=== PATIENT | female | born 1985 | race Caucasian/White ===

== ENCOUNTER → 2017-07-19 | Outpatient (CLI) | payer BC, OTHER ==
[2017-07-23 14:04] LABS: Mis test requested (Blood) Full Integraded Pt 2
== END | disposition home or self-care (01) ==
LOC: LABWHC1 12:49
PROVIDERS: ATTEND Obstetrics & Gynecology Maternal & Fetal Medicine
DX: Z34.81 Encounter for supervision of other normal pregnancy, first trimester (principal); Z3A.00 Weeks of gestation of pregnancy not specified
CPT/HCPCS: 36415; 82105; 82677; 84702; 86336

== ENCOUNTER 2017-11-25 12:49 | Outpatient (CLI) | payer BC, OTHER ==
[2017-11-25 14:24] VITALS: BP 123/78; PULSE 85; RESP 14; TEMP 96.9
--- NOTE | 2017-12-25 17:38 | P.MSEPDOC ---
Presenting Problems - Arrival Data Date of Arrival on Unit: 11/25/17 Time of Arrival on Unit: 12:49 Mode of Transport: Wheelchair - Complaint OB-Reason for Admission/Chief Complaint: Visual Disturbances, Dizziness, Syncope /Fainting Spell Comment: dizzy, seeing spots, almost passed out, short of breath Medical History - Information : 5 Para: 3 Term: 2 : 1 Abortions: Spontaneous or Elective: 1 Number of Living Children: 2 - Gestational Age Gestational Age by KATIA (wks/days): 34 Weeks and 3 Days - History Complications: Prior Comment: MTHFR, thrombophilia, Hx DVT Review of Systems - Review of Systems Constitutional: No problems Breast: No problems ENT: No problems Cardiovascular: No problems Respiratory: TARA Gastrointestinal: No problems Genitourinary: No problems Musculoskeletal: No problems Neurological: Dizziness Skin: No problems Comment: pt states short of breath, lungsounds clear to auscultation Vital Signs - Temperature Temperature: 96.9 F Temperature Source: Temporal Artery Scan - Pulse Right Pulse Rate: 85 Pulse Assessment Method: Automatic Cuff - Respirations Respiratory Rate: 14 Oxygen Delivery Method: Room Air O2 Sat by Pulse Oximetry: 97 - Blood Pressure Right Arm Blood Pressure: 123/78 Blood Pressure Mean: 93 Blood Pressure Source: Automatic Cuff Medical Screen Scoring (Pre) - Cervical Exam Dilation: Exam Deferred - Uterine Contractions Frequency: N/A Duration: N/A Intensity: N/A - Maternal Vital Signs Maternal Temperature: N/A Maternal Blood Pressure: N/A Signs of Preeclampsia: N/A Maternal Respirations: N/A - Pain Assessment Pain Scale Used: Numeric (1 - 10) Pain Intensity: 0 - Maternal Trauma Maternal Trauma: N/A - Assessment Baseline FHR: 125 Heart Rate - NICHD Category: Category I (Normal) = 0 NST: Reactive Position: N/A Station: N/A - Total Score Total Score (Pre): 0 - Level of Risk Level of Risk: Low (0-5) Physician Notification (Pre) - Physician Notified Physician Notified Date: 11/25/17 Physician Notified Time: 13:18 Spoke With: Oniel Joshi Order Received: Yes (Take to EC for evaluation) Disposition - Disposition OB Disposition: Triage, Transfer to other dept./facility Transferred to:: Emergency Department Discharge Date: 11/25/17 Discharge Time: 13:31 I agree with the RN Medical Screening Exam: Yes Risk & Benefit of care provided described in d/c instruction: Yes Diagnosis: RELATED CONDITIONS, UNSPECIFIED, THIRD TRIMESTER (near syncope)
== END 2017-11-25 13:31 | disposition home or self-care (01) ==
LOC: FBPOP 12:49
PROVIDERS: ATTEND Obstetrics & Gynecology
DX: O26.93 Pregnancy related conditions, unspecified, third trimester (principal); H53.8 Other visual disturbances; R42 Dizziness and giddiness; R55 Syncope and collapse; Z3A.34 34 weeks gestation of pregnancy
CPT/HCPCS: 59025; 99213

== ENCOUNTER 2017-11-25 13:39 | Emergency (ER) | payer BC, OTHER ==
[2017-11-25 13:57] VITALS: RESP 18; TEMP 98
--- NOTE | 2017-11-25 14:59 | ED ---
Dizziness HPI - General Chief Complaint: Dizziness Stated Complaint: dizziness/near syncope Time Seen by Provider: 11/25/17 14:59 Source: patient, family () Mode of arrival: wheelchair Limitations: no limitations - History of Present Illness Initial Comments: Patient presents with lightheadedness, presyncope. Patient is 34 weeks . Patient seen in labor and delivery prior to arrival to the emergency room, cleared by OB. Patient states she woke up at 11 AM today, states she felt very lightheaded when standing up, feels lightheaded like she cannot pass out when she walks. Complains of mild shortness of breath. States she feels fatigued, entire body feels heavy. 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 Patient currently on aspirin Lovenox. Patient denies any abdominal pain, vaginal bleeding, bleeding anywhere, blood in her stools, dark stools. Patient states everything was normal yesterday, denies any recent illness or symptoms prior to onset at 11 AM today. Patient states heart rate was right around 100 at home today. Denies fevers, chills, nausea, vomiting, cough, rhinorrhea, nasal congestion, headache, numbness, weakness. MD Complaint: lightheadedness, near syncope - Related Data Home Medications Medication Instructions Recorded Confirmed Cetirizine HCl [Zyrtec] 10 mg PO HS 06/09/15 11/25/17 Aspirin [Adult Low Dose Aspirin EC] 81 mg PO HS 11/25/17 11/25/17 Enoxaparin [Lovenox] 40 mg SQ HS 11/25/17 11/25/17 Pnv No.95/Ferrous Fum/Folic AC 1 tab PO HS 11/25/17 11/25/17 [ Multivitamin Tablet] Previous Rx's Medication Instructions Recorded Cephalexin [Keflex] 500 mg PO Q12HR 5 Days #10 cap 11/25/17 Allergies Allergy/AdvReac Type Severity Reaction Status Date / Time pseudoephedrine HCl Allergy Rapid Verified 11/25/17 15:46 [From Sudafed] Heart Rate Sulfa (Sulfonamide Allergy Anaphylaxis Verified 11/25/17 15:46 Antibiotics) Review of Systems ROS Statement: Those systems with pertinent positive or pertinent negative responses have been documented in the HPI. ROS Other: All systems not noted in ROS Statement are negative. Constitutional: Denies: fever, chills, weakness Eyes: Denies: vision change ENT: Denies: ear pain, throat pain, congestion Respiratory: Reports: dyspnea. Denies: cough, wheezes, hemoptysis, stridor Cardiovascular: Reports: dyspnea on exertion. Denies: chest pain, palpitations , syncope Endocrine: Reports: fatigue Gastrointestinal: Denies: abdominal pain, nausea, vomiting, hematemesis, melena , hematochezia Genitourinary: Denies: urgency, hematuria Musculoskeletal: Denies: back pain Skin: Denies: rash, change in color Neurological: Denies: headache, weakness, numbness, confusion Past Medical History Past Medical History: Deep Vein Thrombosis (DVT) History of Any Multi-Drug Resistant Organisms: None Reported Past Surgical History: Section Additional Past Surgical History / Comment(s): ENDOMETRIAL MOLE REMOVED, VAGINAL REPAIR, left ankle fracture Past Psychological History: No Psychological Hx Reported Smoking Status: Never smoker Past Alcohol Use History: None Reported Past Drug Use History: None Reported General Exam - General Exam Comments Initial Comments: Sitting up in bed. No acute distress. Calm, pleasant, smiling. Well- appearing. Limitations: no limitations General appearance: alert, in no apparent distress Head exam: Present: atraumatic, normocephalic Eye exam: Present: normal appearance, PERRL, EOMI ENT exam: Present: normal exam, mucous membranes moist Neck exam: Present: normal inspection Respiratory exam: Present: normal lung sounds bilaterally. Absent: respiratory distress, wheezes, rales, rhonchi, stridor, accessory muscle use, decreased breath sounds, prolonged expiratory Cardiovascular Exam: Present: regular rate, normal rhythm GI/Abdominal exam: Present: soft, other (Gravid). Absent: tenderness, guarding , rebound Extremities exam: Present: normal inspection. Absent: pedal edema, calf tenderness Neurological exam: Present: alert, oriented X3, other (GCS 15) Psychiatric exam: Present: normal affect, normal mood Skin exam: Present: warm, dry, intact, normal color. Absent: rash Course Vital Signs 11/25/17 11/25/17 11/25/17 13:54 15:22 17:28 Temperature 98.0 F Pulse Rate 98 101 H 98 Respiratory 18 18 Rate Blood Pressure 126/80 125/79 127/84 O2 Sat by Pulse 98 95 99 Oximetry Medical Decision Making - Medical Decision Making Patient has a history of DVTs. Patient complains of shortness of breath, presyncope. Risk-benefit discussion of CT to rule out pulmonary embolism with patient and , state that is her main concern is to "rule out PE", they agree with CTA chest. EKG: Normal sinus rhythm, heart rate 88, no ST or T-wave changes appreciated. No S1 Q3 T3 appreciated. CT PE negative. Patient required 2 L IV fluids before producing urine sample. Possible dehydration. UA likely contamination, we'll send urine culture. Given we will treat this course of antibiotics. Patient & updated with poor results. She'll comfortable going discharge home. Other than fatigue no symptoms consistent with influenza. Patient instructed to monitor for headache, URI symptoms, cough, nausea, vomiting, diarrhea. Patient agrees to follow primary care physician one to 2 days, states she has "appointments with All my doctors this week". Return to ER for new or worsening symptoms. Patient & understand and agree. - Lab Data Result diagrams: 11/25/17 15:21 11/25/17 15:21 Lab Results 11/25/17 11/25/17 11/25/17 Range/Units 15:21 15:21 15:21 WBC 16.8 H (3.8-10.6) k/uL RBC 4.68 (3.80-5.40) m/uL Hgb 14.0 (11.4-16.0) gm/dL Hct 41.5 (34.0-46.0) % MCV 88.8 (80.0-100.0) fL MCH 29.9 (25.0-35.0) pg MCHC 33.6 (31.0-37.0) g/dL RDW 15.8 H (11.5-15.5) % Plt Count 315 (150-450) k/uL Neutrophils % 86 % Lymphocytes % 7 % Monocytes % 5 % Eosinophils % 1 % Basophils % 0 % Neutrophils # 14.4 H (1.3-7.7) k/uL Lymphocytes # 1.2 (1.0-4.8) k/uL Monocytes # 0.8 (0-1.0) k/uL Eosinophils # 0.2 (0-0.7) k/uL Basophils # 0.0 (0-0.2) k/uL PT (9.0-12.0) sec INR (<1.2) APTT (22.0-30.0) sec Sodium 138 (137-145) mmol/L Potassium 5.2 H (3.5-5.1) mmol/L Chloride 109 H (98-107) mmol/L Carbon Dioxide 18 L (22-30) mmol/L Anion Gap 11 mmol/L BUN 12 (7-17) mg/dL Creatinine 0.60 (0.52-1.04) mg/dL Est GFR (MDRD) Af Amer >60 (>60 ml/min/1.73 sqM) Est GFR (MDRD) Non-Af >60 (>60 ml/min/1.73 sqM) Glucose 87 (74-99) mg/dL Calcium 9.3 (8.4-10.2) mg/dL Magnesium 1.7 (1.6-2.3) mg/dL Total Creatine Kinase 27 L (30-135) U/L CK-MB (CK-2) 0.5 (0.0-2.4) ng/mL CK-MB (CK-2) Rel Index 1.9 Troponin I <0.012 (0.000-0.034) ng/mL Urine Color Urine Appearance (Clear) Urine pH (5.0-8.0) Ur Specific [place] (1.001-1.035) Urine Protein (Negative) Urine Glucose (UA) (Negative) Urine Blood (Negative) Urine Nitrite (Negative) Urine Bilirubin (Negative) Urine Urobilinogen (<2.0) mg/dL Ur Leukocyte Esterase (Negative) Urine RBC (0-5) /hpf Urine WBC (0-5) /hpf Ur Squamous Epith Cells (0-4) /hpf Urine Bacteria (None) /hpf Urine Mucus (None) /hpf 11/25/17 11/25/17 Range/Units 15:21 17:30 WBC (3.8-10.6) k/uL RBC (3.80-5.40) m/uL Hgb (11.4-16.0) gm/dL Hct (34.0-46.0) % MCV (80.0-100.0) fL MCH (25.0-35.0) pg MCHC (31.0-37.0) g/dL RDW (11.5-15.5) % Plt Count (150-450) k/uL Neutrophils % % Lymphocytes % % Monocytes % % Eosinophils % % Basophils % % Neutrophils # (1.3-7.7) k/uL Lymphocytes # (1.0-4.8) k/uL Monocytes # (0-1.0) k/uL Eosinophils # (0-0.7) k/uL Basophils # (0-0.2) k/uL PT 9.7 (9.0-12.0) sec INR 1.0 (<1.2) APTT 22.8 (22.0-30.0) sec Sodium (137-145) mmol/L Potassium (3.5-5.1) mmol/L Chloride (98-107) mmol/L Carbon Dioxide (22-30) mmol/L Anion Gap mmol/L BUN (7-17) mg/dL Creatinine (0.52-1.04) mg/dL Est GFR (MDRD) Af Amer (>60 ml/min/1.73 sqM) Est GFR (MDRD) Non-Af (>60 ml/min/1.73 sqM) Glucose (74-99) mg/dL Calcium (8.4-10.2) mg/dL Magnesium (1.6-2.3) mg/dL Total Creatine Kinase (30-135) U/L CK-MB (CK-2) (0.0-2.4) ng/mL CK-MB (CK-2) Rel Index Troponin I (0.000-0.034) ng/mL Urine Color Yellow Urine Appearance Cloudy H (Clear) Urine pH 6.5 (5.0-8.0) Ur Specific [place] 1.040 H (1.001-1.035) Urine Protein 1+ H (Negative) Urine Glucose (UA) Negative (Negative) Urine Blood Negative (Negative) Urine Nitrite Negative (Negative) Urine Bilirubin Negative (Negative) Urine Urobilinogen <2.0 (<2.0) mg/dL Ur Leukocyte Esterase Large H (Negative) Urine RBC 15 H (0-5) /hpf Urine WBC 13 H (0-5) /hpf Ur Squamous Epith Cells 20 H (0-4) /hpf Urine Bacteria Many H (None) /hpf Urine Mucus Occasional H (None) /hpf Disposition Clinical Impression: Lightheaded, Fatigue Disposition: HOME SELF-CARE Condition: Good Instructions: Lightheadedness (ED) Additional Instructions: Follow-up primary care physician one to 2 days. Return to ER for new or worsening symptoms. Prescriptions: Cephalexin [Keflex] 500 mg PO Q12HR 5 Days #10 cap Referrals: Yunior Wynn MD [Primary Care Provider] - 1-2 days
[2017-11-25] MEDS ORDERED: SODIUM CHLORIDE 0.9% 1,000 ML IV STA ×2 (15:08→16:40)
[2017-11-25] MEDS ORDERED: RX INFO: IV CONTRAST WAS GIVEN 1 EACH MISC MISCELLANE PRN (15:09)
[2017-11-25 15:37] LABS: Basophils % (A) 0 %; Eosinophils # (A) 0.2 k/uL (0-0.7); Eosinophils % (A) 1 %; HCT 41.5 % (34.0-46.0); Lymphocytes # (A) 1.2 k/uL (1.0-4.8); Lymphocytes % (A) 7 %; MCH 29.9 pg (25.0-35.0); MCHC 33.6 g/dL (31.0-37.0); MCV 88.8 fL (80.0-100.0); Mean Platelet Volume 6.9; Monocytes # (A) 0.8 k/uL (0-1.0); Monocytes % (A) 5 %; Neutrophils # (A) 14.4 k/uL (1.3-7.7); Neutrophils % (A) 86 %; Platelet Count 315 k/uL (150-450); RBC 4.68 m/uL (3.80-5.40); RDW 15.8 % (11.5-15.5); WBC 16.8 k/uL (3.8-10.6)
[2017-11-25 15:47] LABS: Anion Gap 11 mmol/L; Blood Urea Nitrogen 12 mg/dL (7-17); Calcium 9.3 mg/dL (8.4-10.2); Carbon Dioxide 18 mmol/L (22-30); Chloride 109 mmol/L (98-107); Glucose 87 mg/dL (74-99); Magnesium 1.7 mg/dL (1.6-2.3); Potassium 5.2 mmol/L (3.5-5.1); Sodium 138 mmol/L (137-145)
[2017-11-25 15:55] LABS: Creatine Kinase 27 U/L (30-135)
[2017-11-25 16:08] LABS: Creatine Kinase MB 0.5 ng/mL (0.0-2.4); Troponin I <0.012 ng/mL (0.000-0.034)
[2017-11-25 16:10] LABS: Partial Thromboplastin Time 22.8 sec (22.0-30.0); Prothrombin Time 9.7 sec (9.0-12.0)
--- NOTE | 2017-11-25 16:51 | CT ---
EXAMINATION TYPE: CT angio chest DATE OF EXAM: 11/25/2017 4:36 PM COMPARISON: 09/26/2014 HISTORY: Dizziness with near syncope. CT DLP: 387.9 mGycm Automated exposure control for dose reduction was used. CONTRAST: CTA scan of the thorax is performed with IV Contrast, patient injected with 64 mL of Omnipaque 350, p ulmonary embolism protocol. There are 3-D post processed images.. FINDINGS: The lungs are clear of consolidation. There is no pleural effusion. There is no evidence of a pulmona ry mass. There is a small hiatal hernia. Heart size is normal. There is no pericardial effusion. I se e no filling defects in the pulmonary arteries. The bony thorax appears intact. There is no mediastin al adenopathy. There are no hilar masses. Thoracic aorta appears normal. IMPRESSION: NO EVIDENCE OF PULMONARY EMBOLISM. Small hiatal hernia that is new compared to old exam.
[2017-11-25 17:29] VITALS: BP 127/84; PULSE 98
[2017-11-25 17:37] LABS: Appearance,Urine Cloudy (Clear); Bacteria,Urine Many /hpf; Bilirubin,Urine Negative (Negative); Blood,Urine Negative (Negative); Color,Urine Yellow; Glucose,Urine (UA) Negative (Negative); Ketones,Urine 2+ (Negative); Leukocyte Esterase,Urine Large (Negative); Mucus,Urine Occasional /hpf; Nitrite,Urine Negative (Negative); PH, Urine 6.5 (5.0-8.0); Protein,Urine 1+ (Negative); RBC,Urine 15 /hpf (0-5); Squamous Epithelial Cell,Urine 20 /hpf (0-4); Urobilinogen,Urine <2.0 mg/dL (<2.0); WBC,Urine 13 /hpf (0-5)
== END 2017-11-25 18:29 | disposition home or self-care (01) ==
LOC: EC 13:39
DX: O99.89 Other specified diseases and conditions complicating pregnancy, childbirth and the puerperium (principal); R42 Dizziness and giddiness; R53.83 Other fatigue; R06.02 Shortness of breath; R55 Syncope and collapse; Z3A.34 34 weeks gestation of pregnancy; Z86.718 Personal history of other venous thrombosis and embolism; Z79.82 Long term (current) use of aspirin; Z79.01 Long term (current) use of anticoagulants; Z79.899 Other long term (current) drug therapy; Z88.2 Allergy status to sulfonamides; Z88.8 Allergy status to other drugs, medicaments and biological substances
CPT/HCPCS: 36415; 93005; 80048; 82550; 82553; 83735; 84484; 85025; 85610; 85730; 81001; 87086; 71275; 99284; 96360; 96361; Q9967; 59025; 99213

== ENCOUNTER 2018-12-09 06:39 | Day surgery (SDC) | payer BC, OTHER ==
[2018-12-04 10:37] VITALS: BMI 41.1
--- NOTE | 2018-12-05 13:30 | P.HPOB ---
History of Present Illness H&P Date: 12/05/18 Chief Complaint: Menorrhagia Basia is a 33-year-old female with heavy vaginal bleeding. She also is noted to have an ultrasound showing a thickened endometrium at 2 cm. She is scheduled for D&C with hysteroscopy. Risks/benefits/alternatives to this procedure were discussed with the patient in detail and all questions were answered for her prior to proceeding to the operating room. On physical exam vital signs are stable afebrile. Heart regular, lungs clear, extremities without pain. Abdomen soft nontender. Positive bowel sounds are noted. Pelvic exam is otherwise unremarkable. Assessment menorrhagia. Plan D& C with hysteroscopy. Past Medical History Past Medical History: Deep Vein Thrombosis (DVT) Additional Past Medical History / Comment(s): DVT LT LEG X 2. THICKENED ENDOMETRIAL LINING History of Any Multi-Drug Resistant Organisms: None Reported Past Surgical History: Appendectomy, Section Additional Past Surgical History / Comment(s): ENDOMETRIAL MOLE REMOVED, VAGINAL REPAIR, C-SECT X 3, LAP. DIAG. EXAM Past Anesthesia/Blood Transfusion Reactions: No Reported Reaction Smoking Status: Never smoker - Past Family History Mother Family Medical History: No Reported History Medications and Allergies Home Medications Medication Instructions Recorded Confirmed Type Cetirizine HCl [Zyrtec] 10 mg PO HS 06/09/15 12/04/18 History Aspirin [Adult Low Dose Aspirin EC] 81 mg PO HS 11/25/17 12/04/18 History Acetaminophen [Tylenol Extra 500 - 1,000 mg PO DAILY PRN 12/04/18 12/04/18 History Strength] Cholecalciferol [Vitamin D3] 5,000 unit PO DAILY 12/04/18 12/04/18 History Post Vitamin 1 each PO HS 12/04/18 History Allergies Allergy/AdvReac Type Severity Reaction Status Date / Time pseudoephedrine HCl Allergy Rapid Verified 12/04/18 10:32 [From Sudafed] Heart Rate Sulfa (Sulfonamide Allergy Anaphylaxis Verified 12/04/18 10:32 Antibiotics) Exam Osteopathic Statement: *. No significant issues noted on an osteopathic structural exam other than those noted in the History and Physical/Consult.
[~2018-12-09 06:39] MED LIST: DEXAMETHASONE SOD PHOSPHATE 10 MG/ML 1 ML VIAL IV ONE; HYDROmorphone 0.5 MG/0.5 ML SYRINGE IVP PRN; LACTATED RINGERS 1,000 ML IV SCH; MIDAZOLAM (PF) 2 MG/2 ML VIAL IV PRN; ONDANSETRON 4 MG/2 ML VIAL IVP ONE; Pre Op ABX Message 1 EACH MISC MISCELLANE ONE; SCOPOLAMINE 1.5MG/72HR PATCH TRANSDERM ONE
[2018-12-09] MEDS ORDERED: LIDOCAINE 1% 20 ML VIAL (10MG/ML) FOR IV START INTRADERMA ONE (07:03)
[2018-12-09] MEDS ORDERED: LACTATED RINGERS 1,000 ML IV ONE (07:03)
[2018-12-09] MEDS ORDERED: SCOPOLAMINE 1.5MG/72HR PATCH TRANSDERM ONE (07:05)
[2018-12-09] MEDS ORDERED: LIDOCAINE 1% INJ 10MG/ML (20 ML MDV) ONE (07:32)
[2018-12-09] MEDS ORDERED: fentaNYL (PF) 50 MCG/ML 2 ML AMP ONE (07:32)
[2018-12-09] MEDS ORDERED: PROPOFOL 10 MG/ML 20 ML VIAL IV ONE (07:32)
[2018-12-09] MEDS ORDERED: SUCCINYLCHOLINE CHLORIDE 100 MG/5 ML SYR IV ONE (07:32)
--- NOTE | 2018-12-09 08:03 | P.OP ---
Date of Procedure: 12/09/18 Preoperative Diagnosis: Menorrhagia Postoperative Diagnosis: Same Procedure(s) Performed: D&C with hysteroscopy Anesthesia: EZEQUIEL Surgeon: Cruz Engle Estimated Blood Loss (ml): 3 Pathology: other (Uterine curettings) Condition: stable Disposition: same day Operative Findings: Pathology pending Description of Procedure: Patient was taken to the operating suite where general anesthetic was found be adequate. She was prepped and draped in the normal sterile fashion and placed in dorsal lithotomy position. Initially a speculum was inserted into the vagina and the anterior lip of the cervix identified and grasped with an Allis clamp. Uterus was then sounded to 9-1/2 cm and cervix was dilated. Once accomplished camera was inserted. No gross pathology was noted. Camera was then removed and sharp curettings of endometrium were obtained. All tissues collected placed on Telfa, and sent to pathology for evaluation. All incidents were then removed. Sponge, lap, needle counts were all correct 2. Patient was then taken to the recovery room in stable and satisfactory condition. Plan - Discharge Summary Discharge Rx Participant: Yes New Discharge Prescriptions: New Ibuprofen [Motrin] 600 mg PO Q6HR PRN #30 tab PRN Reason: Pain No Action Cetirizine HCl [Zyrtec] 10 mg PO HS Aspirin [Adult Low Dose Aspirin EC] 81 mg PO HS Cholecalciferol [Vitamin D3] 5,000 unit PO DAILY Post Vitamin 1 each PO HS Acetaminophen [Tylenol Extra Strength] 500 - 1,000 mg PO DAILY PRN PRN Reason: Pain Discharge Medication List Cetirizine HCl [Zyrtec] 10 mg PO HS 06/09/15 [History] Aspirin [Adult Low Dose Aspirin EC] 81 mg PO HS 11/25/17 [History] Acetaminophen [Tylenol Extra Strength] 500 - 1,000 mg PO DAILY PRN 12/04/18 [ History] Cholecalciferol [Vitamin D3] 5,000 unit PO DAILY 12/04/18 [History] Post Vitamin 1 each PO HS 12/04/18 [History] Ibuprofen [Motrin] 600 mg PO Q6HR PRN #30 tab 12/09/18 [Rx] Follow up Appointment(s)/Referral(s): Cruz Engle DO [Doctor of Osteopathic Medicine] - 10 Days Patient Instructions/Handouts: *[facility] - (Anesthesia) Discharge Instructions Outpatient Surgery, *[facility] - Scopalamine Patch Instructions Activity/Diet/Wound Care/Special Instructions: No heavy lifting, limit stairs and driving, and pelvic rest today. If any high temperatures, heavy bleeding, or severe pain call my office Discharge Disposition: HOME SELF-CARE
[2018-12-09 08:10] VITALS: TEMP 97.5
[2018-12-09] MEDS ORDERED: KETOROLAC 30 MG/ML 1 ML VIAL IVP ONE (08:20)
[2018-12-09 09:11] VITALS: RESP 18
[2018-12-09 09:43] VITALS: BP 120/82
[2018-12-09 09:49] VITALS: PULSE 76
== END 2018-12-09 10:13 | disposition home or self-care (01) ==
LOC: OR 06:39
PROVIDERS: ATTEND Obstetrics & Gynecology
DX: N92.0 Excessive and frequent menstruation with regular cycle (principal); R93.89 Abnormal findings on diagnostic imaging of other specified body structures; J45.909 Unspecified asthma, uncomplicated; K21.9 Gastro-esophageal reflux disease without esophagitis; Z79.82 Long term (current) use of aspirin; Z79.899 Other long term (current) drug therapy; Z88.2 Allergy status to sulfonamides; Z88.8 Allergy status to other drugs, medicaments and biological substances; Z86.718 Personal history of other venous thrombosis and embolism
CPT/HCPCS: 81025; 88305; 58558; J1100; J2405; J2001; J3010; J1885; J0330; J2704

== ENCOUNTER → 2019-03-23 | Outpatient (CLI) | payer BC, OTHER ==
[2019-03-23 13:59] LABS: Basophils % (A) 0 %; Eosinophils # (A) 0.2 k/uL (0-0.7); Eosinophils % (A) 2 %; Lymphocytes # (A) 3.1 k/uL (1.0-4.8); Lymphocytes % (A) 32 %; MCH 27.2 pg (25.0-35.0); MCHC 32.5 g/dL (31.0-37.0); MCV 83.7 fL (80.0-100.0); Mean Platelet Volume 6.7; Monocytes # (A) 0.5 k/uL (0-1.0); Monocytes % (A) 5 %; Neutrophils # (A) 5.8 k/uL (1.3-7.7); Neutrophils % (A) 60 %; Platelet Count 335 k/uL (150-450); RBC 5.14 m/uL (3.80-5.40); RDW 14.4 % (11.5-15.5); WBC 9.8 k/uL (3.8-10.6)
[2019-03-23 14:18] LABS: African American GFR (CKD) >90 (>60 ml/min/1.73 sqM); Anion Gap 9 mmol/L; Blood Urea Nitrogen 13 mg/dL (7-17); Calcium 9.5 mg/dL (8.4-10.2); Carbon Dioxide 25 mmol/L (22-30); Chloride 107 mmol/L (98-107); Glucose 84 mg/dL (74-99); Potassium 4.2 mmol/L (3.5-5.1); Sodium 141 mmol/L (137-145)
== END | disposition home or self-care (01) ==
LOC: LABPAT 13:32
PROVIDERS: ATTEND Obstetrics & Gynecology
DX: Z01.812 Encounter for preprocedural laboratory examination (principal)
CPT/HCPCS: 36415; 80048; 85025

== ENCOUNTER 2019-03-31 05:45 | Inpatient (IN) | payer BC, OTHER ==
--- NOTE | 2019-03-30 23:03 | P.HPOB ---
History of Present Illness H&P Date: 03/30/19 Chief Complaint: Menorrhagia Basia is a 33-year-old female with a history of heavy vaginal bleeding. Patient also is noted to have a grossly thickened endometrium at 2 cm with continued heavy vaginal bleeding. She did undergo a D&C with hysteroscopy in December which revealed benign pathology. She continues to have heavy bleeding and as she has a history of DVT cannot take medication for control of her bleeding due to risk of coagulopathy and recurrent DVT. As such we discussed options including NovaSure versus hysterectomy she is opted for a hysterectomy. Due to her history of 2 sections she is scheduled for a total abdominal hysterectomy possible BSO. Risks/benefits/alternatives reviewed with the patient in detail and did include but were not limited to bleeding and infection, damage to bladder/bowel/nerves/ureters/vessels. On physical exam vital signs are stable and afebrile. Heart regular, lungs clear, extremities without pain. Abdomen soft nontender. Positive bowel sounds are noted. Pelvic exam is generally unremarkable. Assessment menorrhagia. Plan total abdominal hysterectomy possible BSO. Past Medical History Past Medical History: Asthma, Deep Vein Thrombosis (DVT), GERD/Reflux Additional Past Medical History / Comment(s): DVT LT LEG X 2, HIATAL HERNIA, SEES CHIROPRACTOR FOR HIP PAIN,, STATES JOINT PAIN - POSITIVE BRYAN TEST (FOLLOWS WITH DR ONOFRE). THICKENED ENDOMETRIAL LINING, MENORRHAGIA. History of Any Multi-Drug Resistant Organisms: None Reported Past Surgical History: Appendectomy, Section Additional Past Surgical History / Comment(s): ENDOMETRIAL MOLE REMOVED, VAGINAL REPAIR, C-SECT X 3, LAP. DIAG. EXAM.,. D & C HYSTEROSCOPY (11/2018). Past Anesthesia/Blood Transfusion Reactions: No Reported Reaction Past Psychological History: No Psychological Hx Reported Smoking Status: Never smoker Past Alcohol Use History: None Reported Past Drug Use History: None Reported - Past Family History Mother Family Medical History: No Reported History Medications and Allergies Home Medications Medication Instructions Recorded Confirmed Type Cetirizine HCl [Zyrtec] 10 mg PO DAILY 06/09/15 03/23/19 History Aspirin [Adult Low Dose Aspirin EC] 81 mg PO DAILY 11/25/17 03/23/19 History Albuterol Inhaler [Ventolin Hfa 1 - 2 puff INHALATION RT-Q6H PRN 03/23/19 03/23/19 History Inhaler] Pantoprazole Sodium [Protonix] 20 mg PO DAILY 03/23/19 03/23/19 History Allergies Allergy/AdvReac Type Severity Reaction Status Date / Time pseudoephedrine HCl Allergy Rapid Verified 03/23/19 14:19 [facility] Heart Rate Sulfa (Sulfonamide Allergy Anaphylaxis Verified 03/23/19 14:19 Antibiotics) Exam Osteopathic Statement: *. No significant issues noted on an osteopathic structural exam other than those noted in the History and Physical/Consult.
[~2019-03-31 05:45] MED LIST changes: -LACTATED RINGERS 1,000 ML IV SCH; +LIDOCAINE 1% 20 ML VIAL (10MG/ML) FOR IV START INTRADERMA PRN; -MIDAZOLAM (PF) 2 MG/2 ML VIAL IV PRN; +MIDAZOLAM 2 MG/2 ML VIAL IV PRN; -Pre Op ABX Message 1 EACH MISC MISCELLANE ONE; +ceFAZolin IN SWFI 2 GM/20 ML SYRINGE IVP ONE
[2019-03-31] MEDS: LACTATED RINGERS 1,000 ML IV SCH ×2 (06:35→22:16)
[2019-03-31] MEDS ORDERED: fentaNYL (PF) 50 MCG/ML 2 ML AMP IV ONE (06:54)
[2019-03-31] MEDS ORDERED: MIDAZOLAM (PF) 2 MG/2 ML VIAL IV ONE (06:54)
[2019-03-31] MEDS ORDERED: diphenhydrAMINE 50 MG/ML 1 ML VIAL IVP ONE (07:18)
[2019-03-31] MEDS ORDERED: NALOXONE 0.4 MG/ML 1 ML VIAL IV PRN (07:37)
[2019-03-31] MEDS ORDERED: KETOROLAC 30 MG/ML 1 ML VIAL IVP PRN (07:37)
[2019-03-31] MEDS ORDERED: ONDANSETRON 4 MG/2 ML VIAL IVP PRN ×2 (07:37→08:51)
[2019-03-31] MEDS ORDERED: KETOROLAC 30 MG/ML 1 ML VIAL ONE (07:38)
[2019-03-31] MEDS ORDERED: fentaNYL (PF) 50 MCG/ML 2 ML AMP ONE (07:38)
[2019-03-31] MEDS ORDERED: HYDROmorphone (PF) 1 MG/ML ONE (07:38)
[2019-03-31] MEDS ORDERED: SUCCINYLCHOLINE CHLORIDE 100 MG/5 ML SYR IV ONE (07:38)
[2019-03-31] MEDS ORDERED: MORPHINE SULFATE (PF) 0.3 MG/0.3 ML SYR ONE (07:38)
[2019-03-31] MEDS ORDERED: ROCURONIUM BROMIDE 10 MG/ML 10 ML VIAL IV ONE (07:38)
[2019-03-31] MEDS ORDERED: MIDAZOLAM 2 MG/2 ML VIAL ONE (07:38)
[2019-03-31] MEDS ORDERED: LIDOCAINE 1% INJ 10MG/ML (20 ML MDV) ONE (07:38)
[2019-03-31] MEDS ORDERED: PROPOFOL 10 MG/ML 20 ML VIAL IV ONE (07:38)
[2019-03-31] MEDS ORDERED: LACTATED RINGERS 1,000 ML IV ONE ×2 (08:04→09:46)
--- NOTE | 2019-03-31 08:56 | P.OP ---
Date of Procedure: 03/31/19 Preoperative Diagnosis: Menorrhagia Postoperative Diagnosis: Same Procedure(s) Performed: Total abdominal hysterectomy with bilateral salpingectomy Anesthesia: EZEQUIEL Surgeon: Cruz Engle Chief Medical Physicist #1: Haley Mireles Estimated Blood Loss (ml): 100 IV fluids (ml): 800 Urine output (ml): 100 Pathology: other (Uterus, cervix and fallopian tubes) Condition: stable Disposition: floor Operative Findings: No gross pathology, await tissue pathology Description of Procedure: Patient was taken to the operating suite where a general anesthetic was found be adequate. She was prepped and draped in normal sterile fashion placed in dorsal supine position. Initially a Pfannenstiel skin incision was made and this incision was then carried through to the underlying layer of the fascia second knife. Fascia was then nicked in the midline and this opening was extended superiorly and inferiorly with good visualization of both bowel bladder. Once this was accomplished peritoneum was entered sharply with knife and with good visualization of both bowel bladder the incision was extended superiorly and inferiorly. A self retaining retractor was then inserted and bowels packed out of the operative field. Bladder blade was placed. Patient was then placed in steep Trendelenburg position. Adnexal areas were grasped with long Sury's and uterus was elevated. The round ligament tubal complex was then clamped cut and tied and then I laterally the uterine vasculature was clamped. Significant scarring of the bladder to the uterus was noted and sharp dissection of the bladder off the uterus was done clear yellow urine was noted throughout this process. Bladder was then bluntly dissected out of the operative field. Uterine vasculature was then cut and tied in moving inferiorly along the lateral borders of the uterus the cardinal and uterosacral ligaments were clamped cut and tied in a stepwise fashion moving along the lateral portion of the uterus. Once vaginal cuff was entered uterus was removed and the vaginal cuff was closed 0 Vicryl suture in a running locking fashion. Pelvis was then irrigated. Small oozing was noted from the posterior aspect of the vaginal cuff and from underneath the bladder flap therefore one piece of Surgicel was placed over this to obtain excellent hemostasis. Once accomplished sloping tubes were identified elevated with hemostat clamped with a Ata clamp and excised. Tissue was tied off. No bleeding is noted. Peritoneal layer was then addressed, retractor and bowel packing was removed and peritoneum was closed with 0 Vicryl suture in a running fashion. Fascial layer was then closed with 0 Vicryl suture. 3-0 Vicryl was used to reapproximate the skin and close the space. Skin was then closed [place]. Sponge, lap, needle counts were all correct 2. Patient was then taken to the recovery room in stable and satisfactory condition.
[2019-03-31] MEDS ORDERED: HYDROcodone/APAP 7.5-325MG 1 EACH TAB PO PRN (09:05)
[2019-03-31 11:19] VITALS: BMI 42.0
[2019-03-31] MEDS: NALBUPHINE 10 MG/ML (1 ML AMP) IV PRN ×3 (11:59→22:16)
[2019-03-31] MEDS: HEPARIN SODIUM,PORCINE 5,000 UNIT/ML 1 ML VIAL SQ SCH (15:02)
[2019-03-31] MEDS: SENNOSIDES-DOCUSATE SODIUM 1 EACH TAB PO SCH (15:03)
[2019-04-01] MEDS: SENNOSIDES-DOCUSATE SODIUM 1 EACH TAB PO SCH ×3 (04:13→21:12)
[2019-04-01] MEDS: HEPARIN SODIUM,PORCINE 5,000 UNIT/ML 1 ML VIAL SQ SCH ×2 (04:13→15:13)
[2019-04-01] MEDS: NALBUPHINE 10 MG/ML (1 ML AMP) IV PRN ×3 (05:05→15:12)
--- NOTE | 2019-04-01 08:23 | P.PN ---
Progress Note - Text Progress Note Date: 04/01/19 Postoperative day 1 status post total abdominal hysterectomy under general endotracheal anesthesia, and intrathecal morphine given for postoperative analgesia, patient doing well, there is no anesthesia related complications, Patient had no headache, vital signs stable , Assessment and plan= postop day 1 , doing well there is no anesthesia related complication.
--- NOTE | 2019-04-01 08:53 | P.PN ---
Progress Note - Text Progress Note Date: 04/01/19 Basia is doing very well postop day 1. She is involuting, voiding and tolerating her diet. She voices no complaints. We'll try and advance her diet this morning and get her and bleeding more so we can discontinue the SCDs and likely the heparin. All of the questions are answered at this time. On physical exam vital signs are currently stable and afebrile. Heart regular, lungs clear, extremities without pain. Abdomen soft incisions intact. Assessment postop day 1. Plan continue current care.
[2019-04-01] MEDS: SIMETHICONE 80 MG CHEWABLE PO PRN ×2 (09:19→15:13)
[2019-04-01 10:15] LABS: Basophils % (A) 0 %; Eosinophils % (A) 0 %; HCT 36.2 % (34.0-46.0); HGB 11.6 gm/dL (11.4-16.0); Lymphocytes # (A) 2.9 k/uL (1.0-4.8); Lymphocytes % (A) 24 %; MCH 27.3 pg (25.0-35.0); MCHC 32.1 g/dL (31.0-37.0); Mean Platelet Volume 7.1; Monocytes # (A) 0.7 k/uL (0-1.0); Monocytes % (A) 6 %; Neutrophils # (A) 8.2 k/uL (1.3-7.7); Neutrophils % (A) 68 %; Platelet Count 335 k/uL (150-450); RBC 4.26 m/uL (3.80-5.40); RDW 15.2 % (11.5-15.5)
[2019-04-02] MEDS: HEPARIN SODIUM,PORCINE 5,000 UNIT/ML 1 ML VIAL SQ SCH (08:25)
[2019-04-02] MEDS: SIMETHICONE 80 MG CHEWABLE PO PRN (08:25)
[2019-04-02] MEDS: SENNOSIDES-DOCUSATE SODIUM 1 EACH TAB PO SCH ×2 (08:25→21:19)
[2019-04-02] MEDS: LACTATED RINGERS 1,000 ML IV SCH (08:26)
[2019-04-02] MEDS: RIVAROXABAN 20 MG TAB PO SCH (10:07)
[2019-04-02] MEDS: FAMOTIDINE 20 MG TAB PO SCH (10:07)
[2019-04-02] MEDS: IBUPROFEN 400 MG TAB PO PRN (18:19)
--- NOTE | 2019-04-02 18:49 | P.CONS ---
History of Present Illness - Reason for Consult Consult date: 04/02/19 Post total hysterectomy, recurrent DVT with coagulopathy, lupus, asthma Requesting physician: Cruz Engle - Chief Complaint Post hysterectomy, history of recurrent DVT and coagulopathy. - History of Present Illness 33-year-old female mildly overweight [address] Sherwood's patient who had abdominal hysterectomy with Dr. Engle on 03/31/2019 has been doing well will be probably discharge home tomorrow has been manage with anticoagulation with aspirin only. Patient had 2 episode of DVT and is thromboses in the past and known to have coagulopathy with positive AMA had previously placed on anticoagulation but not lately. Patient otherwise is doing well and will be possibly going home tomorrow. Review of Systems CONSTITUTIONAL: Well-developed no acute respiratory distress. EYES: No icterus sclerae, no conjunctivitis. EARS, NOSE, MOUTH, THROAT, and FACE: No sore throat, lymphadenopathy, carotid bruits or deformity. RESPIRATORY: No SOB cough or wheezes. CARDIOVASCULAR: No CP, Palpitation, PND, Orthopnea, or angina. GASTROINTESTINAL: No Abd pain, Nausea or vomiting, no Diarrhea or constipation, No GI Bleed, no distention or masses. GENITOURINARY: Post hysterectomy no Ryder catheter slight discomfort and irritation lower abdominal region area. INTEGUMENT/BREAST: Negative for any muscular injury with mild osteoarthritis.. HEMATOLOGIC/LYMPHATIC: Negative for bleed or purpura. MUSCULOSKELTAL: Negative for Myalgia or arthralgia. NEURLOGICAL: No LOC, Sz or syncope, blurred vision dizziness or abnormality.. BEHAVIORAL/PSYCH: Negative. ENDOCRINE: Negative. Past Medical History Past Medical History: Asthma, Deep Vein Thrombosis (DVT), GERD/Reflux Additional Past Medical History / Comment(s): DVT LT LEG X 2, HIATAL HERNIA, SEES CHIROPRACTOR FOR HIP PAIN,, STATES JOINT PAIN - POSITIVE BRYAN TEST (FOLLOWS WITH DR ONOFRE). THICKENED ENDOMETRIAL LINING, MENORRHAGIA. History of Any Multi-Drug Resistant Organisms: None Reported Past Surgical History: Appendectomy, Section Additional Past Surgical History / Comment(s): ENDOMETRIAL MOLE REMOVED, VAGINAL REPAIR, C-SECT X 3, LAP. DIAG. EXAM.,. D & C HYSTEROSCOPY (11/2018). Past Anesthesia/Blood Transfusion Reactions: No Reported Reaction Past Psychological History: No Psychological Hx Reported Smoking Status: Never smoker Past Alcohol Use History: None Reported Past Drug Use History: None Reported - Past Family History Mother Family Medical History: No Reported History Medications and Allergies Home Medications Medication Instructions Recorded Confirmed Type Cetirizine HCl [Zyrtec] 10 mg PO DAILY 06/09/15 03/31/19 History Aspirin [Adult Low Dose Aspirin EC] 81 mg PO DAILY 11/25/17 03/31/19 History Albuterol Inhaler [Ventolin Hfa 1 - 2 puff INHALATION RT-Q6H PRN 03/23/19 03/31/19 History Inhaler] Pantoprazole Sodium [Protonix] 20 mg PO DAILY 03/23/19 03/31/19 History Allergies Allergy/AdvReac Type Severity Reaction Status Date / Time pseudoephedrine HCl Allergy Rapid Verified 03/31/19 10:11 [From [facility]] Heart Rate Sulfa (Sulfonamide Allergy Anaphylaxis Verified 03/31/19 10:11 Antibiotics) Physical Exam Vitals: Vital Signs Temp Pulse Resp BP Pulse Ox 04/02/19 08:14 98.3 F 85 16 105/73 94 L 04/01/19 23:39 65 16 04/01/19 23:00 97.8 F 65 16 111/76 97 04/01/19 20:28 75 16 04/01/19 19:35 98.2 F 75 16 108/75 96 04/01/19 16:00 98.0 F 65 18 105/64 96 04/01/19 12:09 98.2 F 81 16 103/68 95 04/01/19 12:00 16 95 04/01/19 10:00 18 Intake and Output 04/01/19 04/02/19 04/02/19 22:59 06:59 14:59 Other: Voiding Method Toilet Toilet # Voids 1 1 General Appearance: Alert, cooperative, no distress, mildly overweight. Neck HEENT: Supple, no lymphadenopathy, no thyroid enlargement, no carotid bruits. Lungs: Clear to auscultation without crackles or wheezes no rhonchi, no deformity. Chest Wall: Chest wall normal expansion with deep inspiration no tenderness and no deformity was found on exam, no costochondral pain or discomfort. Heart: Regular rate and rhythm, S1, S2 normal, no murmur, rub or gallop. Back: Symmetric, no curvature, ROM normal, no CVA tenderness. Abdomen: Soft, non-tender, bowel sounds active all four quadrants, no masses, no organomegaly. Incision lower abdominal area looks fine. Extremities: Extremities normal, atraumatic, no cyanosis trace edema. Pulses: 2+ and symmetric. Skin: Skin color, texture, tugor normal, no rashes or lesions. Neurologic: Alert oriented x3 cranial nerves II through XII intact, no motor deficit, no abnormal balance or gait. Results CBC & Chem 7: 04/01/19 10:01 Labs: Abnormal Lab Results - Last 24 Hours (Table) 04/01/19 Range/Units 10:01 WBC 12.0 H (3.8-10.6) k/uL Neutrophils # 8.2 H (1.3-7.7) k/uL Assessment and Plan Plan: 1 post abdominal hysterectomy: Stable medically and doing well probably home tomorrow. 2 history of recurrent DVT: With the recurrent episode specially with patient coagulopathy patient will be started on regular dose of Xarelto 20 mg daily sample can be provided from the office or new prescription for rapid the next 4 weeks might avoid patient any recurrent episode of DVT at this point. 3 history of lupus: Not in any management for it still seen rheumatology. 4 asthma: On Ventolin on-demand and as needed. 5 severe GERD: On Protonix 40 mg daily. CODE STATUS: Full code. Dr. Alcala thank you much for the consult if I can be any further help to please let me know.
[2019-04-03] MEDS: LACTATED RINGERS 1,000 ML IV SCH (05:39)
[2019-04-03] MEDS: IBUPROFEN 400 MG TAB PO PRN (06:42)
--- NOTE | 2019-04-03 08:06 | P.DS ---
Providers Date of admission: 03/31/19 05:45 Expected date of discharge: 04/03/19 Attending physician: Cruz Engle Consults: 04/02/19 09:35 Consult Physician Routine Consulting Provider: Ashanti Sherwood Consult Reason/Comments: medical management previous dvts s/p total abd hysterectomy Do you want consulting provider notified?: Already Contacted Primary care physician: Ashanti Sherwood Hospital Course: Basia is doing very well postop day 3. She is involuting, voiding and tolerating her diet. She voices no complaints and is requesting discharge home. Vital signs are stable and afebrile. Heart regular, lungs clear, extremities without pain. Abdomen soft with positive bowel sounds. Incision is clean dry and intact. We'll plan removal of gilda today and schedule Steri-Strips. She'll follow me in 2 weeks. Prescription for [place] and Motrin are provided. All of the questions are answered for her at this time. She is stable for discharge this time. Patient Condition at Discharge: Good Plan - Discharge Summary Discharge Rx Participant: Yes New Discharge Prescriptions: New Ibuprofen [Motrin] 600 mg PO Q6HR PRN #30 tab PRN Reason: Pain HYDROcodone/APAP 5-325MG [[place] 5-325] 1 tab PO Q4HR PRN #30 tab PRN Reason: Pain No Action Cetirizine HCl [Zyrtec] 10 mg PO DAILY Aspirin [Adult Low Dose Aspirin EC] 81 mg PO DAILY Albuterol Inhaler [Ventolin Hfa Inhaler] 1 - 2 puff INHALATION RT-Q6H PRN PRN Reason: Shortness Of Breath Pantoprazole Sodium [Protonix] 20 mg PO DAILY Discharge Medication List Cetirizine HCl [Zyrtec] 10 mg PO DAILY 06/09/15 [History] Aspirin [Adult Low Dose Aspirin EC] 81 mg PO DAILY 11/25/17 [History] Albuterol Inhaler [Ventolin Hfa Inhaler] 1 - 2 puff INHALATION RT-Q6H PRN 03/23/19 [History] Pantoprazole Sodium [Protonix] 20 mg PO DAILY 03/23/19 [History] HYDROcodone/APAP 5-325MG [[place] 5-325] 1 tab PO Q4HR PRN #30 tab 04/03/19 [Rx] Ibuprofen [Motrin] 600 mg PO Q6HR PRN #30 tab 04/03/19 [Rx] Follow up Appointment(s)/Referral(s): Cruz Engle DO [Doctor of Osteopathic Medicine] - 2 Weeks Activity/Diet/Wound Care/Special Instructions: No heavy lifting, limit stairs and driving, and pelvic rest. If any high temperatures, heavy bleeding, or severe pain call my office Discharge Disposition: HOME SELF-CARE
[2019-04-03] MEDS: SENNOSIDES-DOCUSATE SODIUM 1 EACH TAB PO SCH (09:29)
[2019-04-03] MEDS: RIVAROXABAN 20 MG TAB PO SCH (09:29)
[2019-04-03] MEDS: FAMOTIDINE 20 MG TAB PO SCH (09:30)
[2019-04-03 16:50] VITALS: BP 110/58; PULSE 68; RESP 18; TEMP 97.9
== END 2019-04-03 16:51 | disposition home or self-care (01) | DRG 742 ==
LOC: 2ORMAIN 05:45 → 6PED 08:58
PROVIDERS: ADMIT Obstetrics & Gynecology; ATTEND Obstetrics & Gynecology
PROC: 0UTC0ZZ Resection of Cervix, Open Approach (ICD-10-PCS; 2019-03-31)
PROC: 0UT20ZZ Resection of Bilateral Ovaries, Open Approach (ICD-10-PCS; 2019-03-31)
PROC: 0UT70ZZ Resection of Bilateral Fallopian Tubes, Open Approach (ICD-10-PCS; 2019-03-31)
PROC: 0UT90ZZ Resection of Uterus, Open Approach (ICD-10-PCS; principal; 2019-03-31 07:30)
DX: N92.0 Excessive and frequent menstruation with regular cycle (principal); Z68.41 Body mass index [BMI] 40.0-44.9, adult; E66.3 Overweight; J45.909 Unspecified asthma, uncomplicated; K21.9 Gastro-esophageal reflux disease without esophagitis; K44.9 Diaphragmatic hernia without obstruction or gangrene; M25.559 Pain in unspecified hip; Z79.82 Long term (current) use of aspirin; Z79.899 Other long term (current) drug therapy; Z86.718 Personal history of other venous thrombosis and embolism; Z98.891 History of uterine scar from previous surgery; Z87.39 Personal history of other diseases of the musculoskeletal system and connective tissue; Z88.2 Allergy status to sulfonamides; Z88.8 Allergy status to other drugs, medicaments and biological substances
CPT/HCPCS: 81025; 85025; 86850; 86900; 86901; 88307; 94760

== ENCOUNTER → 2020-03-04 | Outpatient (CLI) | payer OTHER ==
--- NOTE | 2020-03-05 07:28 | ECHOF ---
Referral Reason:R00.0 Tachycardia, unspecified MEASUREMENTS -------- HEIGHT: 167.6 cm WEIGHT: 120.2 kg BP: RVIDd: 3.4 cm (< 3.3) IVSd: 1.0 cm (0.6 - 1.1) LVIDd: 4.0 cm (3.9 - 5.3) LVPWd: 0.8 cm (0.6 - 1.1) IVSs: 1.5 cm LVIDs: 2.6 cm LVPWs: 1.2 cm LAESV Index (A-L): 21.01 ml/m Ao Diam: 2.6 cm (2.0 - 3.7) AV Cusp: 1.7 cm (1.5 - 2.6) LA Diam: 2.6 cm (2.7 - 3.8) MV EXCURSION: 13.991 mm (> 18.000) MV EF SLOPE: 61 mm/s (70 - 150) EPSS: 0.2 cm MV E Abdias: 0.91 m/s MV DecT: 246 ms MV A Abdias: 0.79 m/s MV E/A Ratio: 1.15 RAP: 5.00 mmHg RVSP: 36.84 mmHg FINDINGS -------- Sinus rhythm. This was a technically adequate study. The left ventricular size is normal. Left ventricular wall thickness is normal. Overall left vent ricular systolic function is normal with, an EF between 55 - 60 %. The diastolic filling pattern is normal for the age of the patient 14.13. The right ventricle is mildly enlarged. Normal LA size by volume 22+/-6 ml/m2. The right atrial size is normal. Interatrial and interventricular septum intact. There is no evidence of aortic regurgitation. There is no evidence of aortic stenosis. No mitral regurgitation. Mild tricuspid regurgitation present. There is borderline pulmonary hypertension. There is no pulmonic regurgitation present. The aortic root size is normal. The inferior vena cava is mildly dilated. There is no pericardial effusion. CONCLUSIONS -------- 1. Sinus rhythm. 2. This was a technically adequate study. 3. The left ventricular size is normal. 4. Left ventricular wall thickness is normal. 5. The diastolic filling pattern is normal for the age of the patient 14.13 6. The right ventricle is mildly enlarged. 7. Normal LA size by volume 22+/-6 ml/m2. 8. The right atrial size is normal. 9. Interatrial and interventricular septum intact. 10. There is no evidence of aortic regurgitation. 11. There is no evidence of aortic stenosis. 12. No mitral regurgitation. 13. Mild tricuspid regurgitation present. 14. There is borderline pulmonary hypertension. 15. There is no pulmonic regurgitation present. 16. The aortic root size is normal. 17. The inferior vena cava is mildly dilated. 18. There is no pericardial effusion. SENIOR CONTROL SYSTEMS ENGINEER: Kiersten Felix RDCS
--- NOTE | 2020-03-16 09:16 | HM ---
HOLTER MONITOR REPORT 24 HOUR HOLTER MONITOR: A 24 hour Holter monitor shows sinus rhythm. A 24 hour Holter monitor shows sinus mechanism, heart rate from 44 to 114 beats per minute, average 69 beats per minute. Average heart rates is in the 60s. No tachy or bradyarrhythmias noted. IMPRESSION: Normal 24 Holter monitor recording. MMODL / IJN: [id number] /
== END | disposition home or self-care (01) ==
LOC: RADECHMAIN 11:18
PROVIDERS: ATTEND Family Medicine
DX: I07.1 Rheumatic tricuspid insufficiency (principal); I27.20 Pulmonary hypertension, unspecified
CPT/HCPCS: 93225; 93226; 93306

== ENCOUNTER → 2021-05-19 | Outpatient (CLI) | payer OTHER ==
--- NOTE | 2021-05-19 16:06 | US ---
EXAMINATION TYPE: US venous doppler duplex LE DATE OF EXAM: 05/19/2021 3:34 PM COMPARISON: NONE CLINICAL HISTORY: R22.41 , R22.42. edema hx of DVT SIDE PERFORMED: Bilateral TECHNIQUE: The lower extremity deep venous system is examined utilizing real time linear array sonog clovis with graded compression, doppler sonography and color-flow sonography. VESSELS IMAGED: Common Femoral Vein Deep Femoral Vein Greater Saphenous Vein * Femoral Vein Popliteal Vein Small Saphenous Vein * Proximal Calf Veins (* superficial vessels) Right Leg: Negative for DVT Left Leg: Negative for DVT IMPRESSION: 1. Bilateral lower extremity ultrasound negative for deep venous thrombosis.
== END | disposition home or self-care (01) ==
LOC: RADUSWWP 15:06
PROVIDERS: ATTEND Internal Medicine Hematology & Oncology
DX: Z86.718 Personal history of other venous thrombosis and embolism (principal)
CPT/HCPCS: 93970